=== PATIENT | female | born 1945 | race Caucasian/White ===

== ENCOUNTER 2020-01-24 10:18 | Emergency (ER) | payer OTHER, SELFPAY ==
[2020-01-24 11:34] VITALS: BP 197/53; PULSE 85; RESP 12; TEMP 36.6; O2SAT 100; BMI 21.9
[2020-01-24 11:39] LABS: Glucose, Whole Blood 307 mg/dL (60-115)
--- NOTE | 2020-01-24 12:05 | ED.GENADULT ---
HPI - General Adult General Chief complaint: General Medical Stated complaint: HIGH BLOOD SUGAR Time Seen by Provider: 01/24/20 12:01 Source: patient Mode of arrival: ambulatory Limitations: no limitations History of Present Illness HPI narrative: this is a 74 years old of female came ambulatory to the emergency department requesting a refill on the prescription medication Humalog and Lantus. She states that she arrived from [place] 2 months ago she has no primary care physician, she denies any chest pain shortness of breath vomiting diarrhea. She states that she is feeling good again she tells me that she just need a prescription of the insulin Onset (ago): day(s) (2) Radiation: non-radiation Severity: moderate Relieving factors: none Exacerbating factors: none Related Data Previous Rx's Medication Instructions Recorded insulin glargine [Lantus U-100 20 unit SUBCUT DAILY #10 ml 01/24/20 Insulin] insulin lispro [Humalog U-100 1 sliding scale dose SUBCUT 01/24/20 Insulin] USEASDIRECTD #10 ml Allergies Allergy/AdvReac Type Severity Reaction Status Date / Time No Known Allergies Allergy Unverified 12/26/19 19:38 [No Known Allergies*] Review of Systems Review of Systems: Yes all other systems are reviewed and are negative Cardiovascular: Cardiovascular: Reports no additional cardiovascular complaints Gastrointestinal: Gastrointestinal: Reports no additional gastrointestinal complaints Psychiatric: Psychiatric: Reports anxiety PMFSH Past Medical History Attestation statement: The following information was validated with the patient. Medical History Diabetes 1.5, managed as type 1 HTN (hypertension) Hypothyroid Myocardial infarct Surgical History (Updated 01/24/20 @ 11:40 by Rikki Hood) H/O: hysterectomy Social History Social History Alcohol intake: unknown Smoking Status: Never smoker Smoked in Last 30 Days: No Use of substances other than those prescribed or required for medical reasons: No Advance Directives: No Advance Directives Information Provided: Yes Physical Exam Vital Signs: Vital Signs: Vital Signs Temp Pulse Resp BP Pulse Ox 01/24/20 12:09 84 16 169/50 H 99 01/24/20 11:34 98 F 85 12 197/53 H 100 Body Mass Index 21.9 Const: Other: she is awake alert oriented x3 he looks well she is not in distress General: cooperative Orientation/consciousness: oriented to person, oriented to place and oriented to time HENMT: Head: Yes normal to inspection and Yes No palpable skull fracture present Eyes: General: appearance normal, both eyes and all related structures Visual Montoya: normal visual montoya by confrontation Neck: Neck: Yes normal visual inspection Chest: Chest palpation & inspection: normal inspection of the chest and normal palpation of entire chest wall Resp: Effort & Inspection: normal respiratory effort, able to speak in complete sentences and decreased respiratory effort Cardio: Jugular venous distension: no JVD Palpation: normal PMI Rate: regular rate Rhythm: regular rhythm GI: Inspection: Yes normal to inspection Percussion: Yes normal to percussion Auscultation: normal bowel sounds Skin: Lesions: no lesions Rashes: no rashes Neuro: General: oriented to person, oriented to place, oriented to time, moves all extremities and CN's II-XI intact bilaterally Psych: Affect: normal affect Medical Decision Making Lab Data Labs: Lab Results 01/24/20 Range/Units 10:25 POC Glucose 307 H (60-115) mg/dL Discharge Plan Discharge Clinical Impression: Medication refill Patient Disposition: Home, Self-Care Instructions: Diabetes Type 1: Management (ED) Prescriptions: New Humalog U-100 Insulin 100 unit/mL cartridge 1 sliding scale dose subcut USEASDIRECTD Qty: 10 RF: 0 Lantus U-100 Insulin 100 unit/mL solution 20 unit subcut DAILY Qty: 10 RF: 0 Interventions: ED Discharge Assessment Last Done: 01/24/20 12:53 Discharge Date/Time: 01/24/20 12:54
[2020-01-24 12:09] VITALS: BP 169/50; PULSE 84; RESP 16; O2SAT 99
== END 2020-01-24 12:54 | disposition home or self-care (01) ==
PROVIDERS: Emergency Provider Emergency Medicine
DX: E11.65 Type 2 diabetes mellitus with hyperglycemia (principal); Z79.4 Long term (current) use of insulin; Z76.0 Encounter for issue of repeat prescription; Z79.899 Other long term (current) drug therapy
CPT/HCPCS: 82947; 99283; 99284